=== PATIENT | female | born 1990 | race Two or more races ===

== ENCOUNTER 2021-03-31 09:48 | Emergency (ER) | payer OTHER, MEDICAID ==
[~2021-03-31] VITALS: Ht 167.6 cm; Wt 81.6 kg
[2021-03-31 09:50] VITALS: BP 142/88
== END 2021-03-31 12:17 | disposition home or self-care (01) ==
LOC: ER 09:48
DX: S16.1XXA Strain of muscle, fascia and tendon at neck level, initial encounter (principal); G43.909 Migraine, unspecified, not intractable, without status migrainosus; X58.XXXA Exposure to other specified factors, initial encounter; Y93.89 Activity, other specified; Y92.89 Other specified places as the place of occurrence of the external cause; Y99.8 Other external cause status